=== PATIENT | female | born 1985 | race African-American/Black ===

== ENCOUNTER 2016-03-02 16:40 | Emergency (ER) | payer BC ==
[~2016-03-02] VITALS: Ht 172.7 cm; Wt 90.7 kg
[2016-03-02 17:29] VITALS: BP 136/79
[2016-03-02 18:04] LABS: NEG OBC UR NEG; POS OBC UR POS
[2016-03-02] MEDS ORDERED: AMOX1TAB61 PO (18:06)
--- NOTE | 2016-03-02 18:06 | PHYS DOC ---
Past Medical History Past Medical History: No Pertinent History Past Surgical History: , Other Additional Past Surgical Histo: BENIN CYST RT BREAST Alcohol Use: Occasionally Drug Use: None Adult General Chief Complaint Chief Complaint: SORE THROAT HPI HPI Patient is a 30 year old female presents emergency department stating that she' s had sinus congestion sore throat with ear pressure for the last 2 weeks. She is taken Aleve and ibuprofen [id number] for the pain and discomfort without relief. She denies any fever, chills or any cough or congestion in the chest area. She denies any shortness of air difficulty breathing. LN the 28 of January Review of Systems Review of Systems Constitutional: Denies fever or chills [] Eyes: Denies change in visual acuity, redness, or eye pain [] HENT: nasal congestion and sore throat [] Respiratory: Denies cough or shortness of breath [] Cardiovascular: No additional information not addressed in HPI [] GI: Denies abdominal pain, nausea, vomiting, bloody stools or diarrhea [] : Denies dysuria or hematuria [] Musculoskeletal: Denies back pain or joint pain [] Integument: Denies rash or skin lesions [] Neurologic: Denies headache, focal weakness or sensory changes [] Allergies Allergies Allergies Coded Allergies Type Severity Reaction Last Updated Verified No Known Drug Allergies 03/02/16 No Physical Exam Physical Exam Constitutional: Well developed, well nourished, no acute distress, non-toxic appearance. [] HENT: Normocephalic, atraumatic, bilateral external ears normal, oropharynx moist, no oral exudates, nose normal. Bilateral tympanic membranes appear to be normal. Throat with postnasal drip. No exudate noted erythematous was noted. Eyes: PERRLA, EOMI, conjunctiva normal, no discharge. [] Neck: Normal range of motion, no tenderness, supple, no stridor. [] Cardiovascular:Heart rate regular rhythm, no murmur [] Lungs & Thorax: Bilateral breath sounds clear to auscultation [] Skin: Warm, dry, no erythema, no rash. [] Back: No tenderness Extremities: No tenderness, no cyanosis, no clubbing, ROM intact, no edema. [] Neurologic: Alert and oriented X 3, normal motor function, normal sensory function, no focal deficits noted. [] Psychologic: Affect normal, judgement normal, mood normal. [] Current Patient Data Vital Signs Vital Signs Date Time Temp Pulse Resp B/P Pulse Ox O2 Delivery O2 Flow Rate FiO2 03/02/16 17:29 98 57 16 100 Room Air 98.0 EKG EKG [] Radiology/Procedures Radiology/Procedures [] Course & Med Decision Making Course & Med Decision Making Pertinent Labs and Imaging studies reviewed. (See chart for details) test negative. Patient will be provided with augmentin, recommendations for sudafed and mucinex DM over the counter. Patient was provided with discharge instructions, treatment regimen and followup recommendations. Patient agrees with discharge instructions, treatment regimen and followup recommendations. Signs and symptoms to return to the emergency department has been provided to patient. [] Dragon Disclaimer Dragon Disclaimer This electronic medical record was generated, in whole or in part, using a voice recognition dictation system. Departure Departure Impression: Primary Impression: Sinusitis, acute Disposition: HOME, SELF-CARE Condition: STABLE Referrals: NON,STAFF (PCP) Patient Instructions: Sinusitis, [id number] Additional Instructions: Home to rest Medication as prescribed Sudafed as directed by manufacture over the counter Mucinex DM as directed by manufacture over the counter Drink plenty of fluids Followup with primary care provider in 3-5 days Return to emergency department as needed for signs and symptoms that become worse. Scripts Amoxicillin/Potassium Clav (Augmentin 875-125 Tablet)1 Each Tablet1 Tab PO BID # 20 TAB Prov:CASEY GALLEGO NP 03/02/16 CASEY GALLEGO NP Mar 02, 2016 18:06
== END 2016-03-02 18:15 | disposition home or self-care (01) ==
LOC: ER 16:40
DX: J01.90 Acute sinusitis, unspecified (principal)
CPT/HCPCS: 81025; 99283

== ENCOUNTER 2017-09-13 21:37 | Emergency (ER) | payer BC | END 2017-09-13 22:04 | disposition home or self-care (01) | LOC: ER 21:37 | DX: L03.012 Cellulitis of left finger (principal); L02.512 Cutaneous abscess of left hand; Z98.890 Other specified postprocedural states | CPT/HCPCS: 10060; 99283 ==

== ENCOUNTER 2020-02-22 19:29 | Emergency (ER) | payer BC ==
[~2020-02-22] VITALS: Ht 172.7 cm; Wt 89.0 kg
[~2020-02-22 19:29] MED LIST: AMOX1TAB61 PO; SULF5DRO EACHEYE
[2020-02-22 20:33] VITALS: BP 106/51
[2020-02-22] MEDS ORDERED: ONDANSETRON ODT 4 MG TAB.RAPDIS. PO ONE (21:00)
[2020-02-22 21:03] LABS: BILIRUBIN,URINE NEGATIVE (NEG); CLARITY,URINE CLEAR; COLOR,URINE YELLOW; NITRITE,URINE NEGATIVE (NEG); PH,URINE 8.5 (<5.0-8.0); PROTEIN,URINE NEGATIVE (NEG-TRACE)
[2020-02-22 21:13] LABS: BACTERIA,URINE FEW /HPF (0-FEW); RBC,URINE 0 /HPF (0-2)
--- NOTE | 2020-02-22 21:57 | PHYS DOC ---
Past Medical History Past Medical History: No Pertinent History Past Surgical History: , Other Additional Past Surgical Histo: BENIGN CYST R BREAST, HERNIA Smoking Status: Never Smoker Alcohol Use: Occasionally Drug Use: None General Adult EDM: Chief Complaint: VAGINAL PROBLEM HPI: HPI: Patient is a 34 year old female who presents with vaginal discharge for 3 days. Patient denies any concerns for STDs, she states she has a history of bacterial vaginosis and feels this could be a beginning of the infection.She is also complaining of 5 out of 10 abdominal cramping, she states her menstrual cycle is supposed to start anytime and is the source of her pain. Denies any chance she is . Review of Systems: Review of Systems: Constitutional: Denies fever or chills. [] Eyes: Denies change in visual acuity. [] HENT: Denies nasal congestion or sore throat. [] Respiratory: Denies cough or shortness of breath. [] Cardiovascular: Denies chest pain or edema. [] GI: Reports abdominal cramping, and nausea, denies, vomiting, bloody stools or diarrhea. [] : Reports vaginal discharge, denies denies dysuria. [] Musculoskeletal: Denies back pain or joint pain. [] Integument: Denies rash. [] Neurologic: Denies headache, focal weakness or sensory changes. [] Psychiatric: Denies depression or anxiety. [] Heart Score: Risk Factors: Risk Factors: DM, Current or recent (<one month) smoker, HTN, HLP, family history of CAD, obesity. Risk Scores: Score 0 - 3: 2.5% MACE over next 6 weeks - Discharge Home Score 4 - 6: 20.3% MACE over next 6 weeks - Admit for Clinical Observation Score 7 - 10: 72.7% MACE over next 6 weeks - Early Invasive Strategies Current Medications: Current Medications Medications (Trade) Dose Ordered Sig/Doug Start Time Stop Time Status Last Admin Dose Admin Ondansetron HCl (Zofran Odt) 4 mg 1X ONCE 02/22/20 21:00 02/22/20 21:01 DC 02/22/20 21:23 4 MG Allergies: Allergies: Allergies Coded Allergies Type Severity Reaction Last Updated Verified No Known Drug Allergies 03/02/16 No Physical Exam: PE: Constitutional: Well developed, well nourished, no acute distress, non-toxic appearance. [] Abdomen: Bowel sounds normal, soft, no tenderness, no masses, no pulsatile masses. [] Pelvic exam External pelvic appears normal, cervix not well visualized, trace amount of white discharge in the vaginal vault, no CMT, no adnexal tenderness Skin: Warm, dry, no erythema, no rash. [] Back: No tenderness, no CVA tenderness. [] Extremities: No tenderness, no cyanosis, no clubbing, ROM intact, no edema. [] Neurologic: Alert and oriented X 3, normal motor function, normal sensory function, no focal deficits noted. [] Psychologic: Affect normal, judgement normal, mood normal. [] Current Patient Data: Labs: Laboratory Tests Test 02/22/20 19:30 02/22/20 20:38 Urine Collection Type Unknown Urine Color Yellow Urine Clarity Clear Urine pH 8.5 (<5.0-8.0) Urine Specific [place] >=1.030 (1.000-1.030) Urine Protein Negative mg/dL (NEG-TRACE) Urine Glucose (UA) Negative mg/dL (NEG) Urine Ketones (Stick) Negative mg/dL (NEG) Urine Blood Negative (NEG) Urine Nitrite Negative (NEG) Urine Bilirubin Negative (NEG) Urine Urobilinogen Dipstick 1.0 mg/dL (0.2 mg/dL) Urine Leukocyte Esterase Trace (NEG) Urine RBC 0 /HPF (0-2) Urine WBC 1-4 /HPF (0-4) Urine Squamous Epithelial Cells Few /LPF Urine Bacteria Few /HPF (0-FEW) Urine Mucus Slight /LPF POC Urine HCG, Qualitative Hcg negative (Negative) Microbiology 02/22/20 Wet Prep - Final, Complete Vital Signs: Vital Signs Date Time Temp Pulse Resp B/P (MAP) Pulse Ox O2 Delivery O2 Flow Rate FiO2 02/22/20 20:33 98.2 72 12 106/51 (69) 99 Room Air 98.2 EKG: EKG: [] Radiology/Procedures: Radiology/Procedures: [] Course & Med Decision Making: Course & Med Decision Making Pertinent Labs and Imaging studies reviewed. (See chart for details) This is a 34-year-old female patient presented to the ED today with vaginal discharge and abdominal cramping. She relates her cramping to menstruation, her cycle supposed to start anytime. BV noted on wet prep. UA negative, negative test. Discharged on Flagyl. She also requested something for nausea, prescription for Zofran was given. Marta Disclaimer: Marta Disclaimer: This electronic medical record was generated, in whole or in part, using a voice recognition dictation system. Departure Departure Impression: Primary Impression: Abdominal cramping Additional Impression: Bacterial vaginosis Disposition: 01 DC HOME SELF CARE/HOMELESS Condition: STABLE Referrals: NO PCP (PCP) follow up with your OBGYN Patient Instructions: Bacterial Vaginosis Additional Instructions: You were evaluated in the emergency room and noted to have bacterial vaginosis. Take the prescribed antibiotics until completed. Follow-up with your doctor in 1 to 2 weeks. We will also send you home with prescription for Zofran Scripts Ondansetron (ONDANSETRON ODT) 4 Mg Tab.rapdis 1 TAB PO PRN Q6-8HRS, #16 TAB Prov: SONIA HERNANDEZ APRN 02/22/20 Metronidazole (FLAGYL) 500 Mg Tablet 1 TAB PO BID, #14 TAB 2 Refills Prov: SONIA HERNANDEZ APRN 02/22/20 SONIA HERNANDEZ APRN Feb 22, 2020 21:57
[2020-02-22] MEDS ORDERED: METR500T PO (22:06)
[2020-02-22] MEDS ORDERED: ONDA4TAB12 PO (22:06)
[2020-02-24 19:09] LABS: GC PROBE Negative (Negative)
== END 2020-02-22 22:17 | disposition home or self-care (01) ==
LOC: ER 19:29
DX: N76.0 Acute vaginitis (principal); B96.89 Other specified bacterial agents as the cause of diseases classified elsewhere; R10.9 Unspecified abdominal pain
CPT/HCPCS: 81001; 81025; 87491; 87591; 99284; Q0111